=== PATIENT | male | born 1975 | race African-American/Black ===

== ENCOUNTER 2022-08-13 09:24 | Emergency (ER) | payer BC ==
[2022-08-13 10:00] LABS: #Monocytes 0.5 10x3/uL (0.0-1.1); #Neutrophils 10.6 10x3/uL (1.5-8.4); %Basophils 0.3 % (0.0-2.0); %Eosinophils 0.3 % (0.0-6.0); %Lymphocytes 11.1 % (18.0-47.0); %Monocytes 4.1 % (0.0-10.0); %Neutrophils 83.6 % (40.0-75.0); Hemoglobin 12.2 g/dL (13.5-17.5); Mean Corpuscular Hemoglobin 29.1 pg (27.0-33.0); Mean Corpuscular Volume 85.7 fl (81.2-95.1); Mean Platelet Volume 9.5 fl (7.4-10.4); Platelet Count 336 10x3/uL (150-450); RBC Distribution Width 11.7 % (11.5-14.5); Red Blood Cell (RBC) Count 4.19 10x6/uL (4.32-5.72); White Blood Cell (WBC) Count 12.7 10x3/uL (3.5-10.5)
[2022-08-13 10:03] LABS: ALT (SGPT) 11 U/L (8-55); AST (SGOT) 18 U/L (5-34); Albumin 4.4 g/dL (3.5-5.0); Alkaline Phosphatase 95 U/L (40-110); Anion Gap 13 mmol/L (10-20); BUN (Urea Nitrogen) 13 mg/dL (8.9-20.6); Bilirubin, Total 0.7 mg/dL (0.2-1.2); Calc. Creatinine Clearance 0 mL/min (70-130); Calcium 9.4 mg/dL (7.8-10.44); Carbon Dioxide 27 mmol/L (22-29); Chloride 102 mmol/L (98-107); Estimated GFR 84; Globulin 2.8 g/dL (2.4-3.5); Glucose 106 mg/dL (70-105); Lipase 8 U/L (8-78); Potassium 3.6 mmol/L (3.5-5.1); Protein, Total 7.2 g/dL (6.0-8.3); Sodium 138 mmol/L (136-145)
== END 2022-08-13 11:30 | disposition home or self-care (01) ==
LOC: CSHERS 09:24
DX: R07.9 Chest pain, unspecified (principal); F15.90 Other stimulant use, unspecified, uncomplicated; I10 Essential (primary) hypertension; F17.210 Nicotine dependence, cigarettes, uncomplicated
CPT/HCPCS: 71045; 80053; 83690; 83880; 84484; 85025; 93005; 94760

== ENCOUNTER 2023-09-06 18:55 | Emergency (ER) | payer BC, SELFPAY | END 2023-09-06 22:08 | disposition home or self-care (01) | LOC: CSHERS 18:55 | DX: K94.03 Colostomy malfunction (principal); I10 Essential (primary) hypertension; F17.210 Nicotine dependence, cigarettes, uncomplicated | CPT/HCPCS: 99283 ==

== ENCOUNTER 2023-09-07 07:28 | Inpatient (IN) | payer OTHER, SELFPAY ==
[2023-09-07 09:06] LABS: #Eosinphils 0.7 10x3/uL (0.0-0.5); #Monocytes 0.5 10x3/uL (0.0-1.1); %Basophils 0.3 % (0.0-2.0); %Eosinophils 6.6 % (0.0-6.0); %Lymphocytes 16.3 % (18.0-47.0); %Monocytes 4.7 % (0.0-10.0); %Neutrophils 71.5 % (40.0-75.0); Hematocrit 40.1 % (38.8-50.0); Hemoglobin 13.7 g/dL (13.5-17.5); Mean Corpuscular HGB CONC 34.2 g/dL (32.0-36.0); Mean Corpuscular Hemoglobin 29.5 pg (27.0-33.0); Mean Corpuscular Volume 86.4 fl (81.2-95.1); Mean Platelet Volume 9.5 fl (7.4-10.4); Platelet Count 438 10x3/uL (150-450); RBC Distribution Width 12.2 % (11.5-14.5); Red Blood Cell (RBC) Count 4.64 10x6/uL (4.32-5.72); White Blood Cell (WBC) Count 9.8 10x3/uL (3.5-10.5)
[2023-09-07] MEDS ORDERED: Lorazepam 2 MG/ML VIAL ONE (09:11)
[2023-09-07] MEDS ORDERED: Morphine 4 MG/ML VIAL ONE (09:12)
[2023-09-07] MEDS ORDERED: Lidocaine 1% (PF) 30 ML VIAL ONE (09:14)
[2023-09-07 09:16] LABS: PTT 31.4 sec (22.0-33.0); Prothrombin Time 10.8 sec (9.5-12.1)
[2023-09-07 09:22] LABS: ALT (SGPT) 8 U/L (8-55); AST (SGOT) 18 U/L (5-34); Albumin 4.4 g/dL (3.5-5.0); Alkaline Phosphatase 114 U/L (40-110); Anion Gap 15 mmol/L (10-20); BUN (Urea Nitrogen) 19 mg/dL (8.9-20.6); Bilirubin, Total 0.6 mg/dL (0.2-1.2); Calc. Creatinine Clearance 0 mL/min (70-130); Calcium 9.9 mg/dL (7.8-10.44); Carbon Dioxide 24 mmol/L (22-29); Chloride 107 mmol/L (98-107); Estimated GFR 74; Glucose 88 mg/dL (70-105); Potassium 4.4 mmol/L (3.5-5.1); Protein, Total 7.4 g/dL (6.0-8.3); Sodium 142 mmol/L (136-145)
[2023-09-07 09:28] LABS: Troponin I Less than 0.010 ng/mL (< 0.028)
[2023-09-07] MEDS ORDERED: Ketamine In 0.9 % NaCl 50 MG/5 ML SYRINGE SLOW IVP SCH (10:00)
[2023-09-07 11:52] VITALS: BMI 27.8
[2023-09-07] MEDS ORDERED: FLU VACC QS2023-24(6MOS UP)/PF 60 MCG/0.5 ML SYRINGE IM ONE (12:00)
[2023-09-07] MEDS ORDERED: Calcium Carbonate 500 MG ChewTAB PO PRN (15:06)
[2023-09-07] MEDS ORDERED: Ondansetron ODT 4 MG TAB PO PRN (15:06)
[2023-09-07] MEDS ORDERED: Artificial Tear Sol 15 ML BOT EA EYE PRN (15:06)
[2023-09-07] MEDS ORDERED: Ondansetron PF 4 MG/2 ML Vial IVP PRN (15:06)
[2023-09-07] MEDS ORDERED: Moisturizing Cream (Eucerin) 113 GM JAR TOP PRN (15:06)
[2023-09-07] MEDS ORDERED: Benzocaine/Menthol 1 LOZ LOZ PO PRN (15:06)
[2023-09-07] MEDS ORDERED: Acetaminophen 650 MG Suppository PR PRN (15:06)
[2023-09-07] MEDS ORDERED: Bisacodyl 5 MG TAB PO PRN (15:06)
[2023-09-07] MEDS ORDERED: Senokot S 8.6-50 MG TAB PO PRN (15:06)
[2023-09-07] MEDS ORDERED: diphenhydrAMINE 25 MG CAP PO PRN (15:06)
[2023-09-07] MEDS: Acetaminophen 325 MG TAB PO PRN ×2 (16:00→21:16)
[2023-09-07] MEDS: Nicotine 14 MG PATCH TD SCH (16:01)
[2023-09-07] MEDS ORDERED: Labetalol HCl 100 MG/20 ML VIAL SLOW IVP PRN (16:56)
[2023-09-07] MEDS ORDERED: Amlodipine 10 MG TAB PO SCH (17:15)
[2023-09-07] MEDS ORDERED: hydrALAZINE 25 MG TAB PO SCH ×2 (17:30→21:00)
[2023-09-07 22:08] LABS: Amphetamine Detected (NotDetected); Barbiturates Screen Not Detected (NotDetected); Benzodiazepine Screen Detected (NotDetected); Cocaine Metabolite Screen Not Detected (NotDetected); Methadone Not Detected (NotDetected); Methamphetamine Detected (NotDetected); Opiate Screen Detected (NotDetected); Oxycodone Screen Not Detected (NotDetected); Phencyclidine (PCP) Not Detected (NotDetected); THC/Cannabinoid Screen Detected (NotDetected); Tricyclic Screen Not Detected (NotDetected)
[2023-09-07 22:32] LABS: SARS-CoV-2 NAA Rapid Test Not Detected (NotDetected)
[2023-09-08] MEDS: hydrALAZINE 20 MG/ML VIAL SLOW IVP PRN ×2 (00:51→05:29)
[2023-09-08] MEDS ORDERED: Morphine 4 MG/ML VIAL SLOW IVP SCH (03:30)
[2023-09-08] MEDS ORDERED: Lorazepam 1 MG TAB PO SCH (09:00)
[2023-09-08] MEDS: Amlodipine 10 MG TAB PO SCH (09:23)
[2023-09-08] MEDS: Acetaminophen 325 MG TAB PO PRN (09:23)
[2023-09-08] MEDS: Losartan Potassium 50 MG TAB PO SCH (10:20)
[2023-09-08] MEDS ORDERED: Lorazepam 2 MG/ML VIAL SLOW IVP PRN (11:12)
[2023-09-08] MEDS ORDERED: HYDROcodone/Acetaminophen 5/325 mg Tablet PO PRN (11:12)
[2023-09-08] MEDS: Nicotine 14 MG PATCH TD SCH (16:45)
[2023-09-09 04:21] LABS: Anion Gap 13 mmol/L (10-20); BUN (Urea Nitrogen) 17 mg/dL (8.9-20.6); Calc. Creatinine Clearance 113 mL/min (70-130); Carbon Dioxide 23 mmol/L (22-29); Chloride 105 mmol/L (98-107); Estimated GFR 89; Glucose 96 mg/dL (70-105); Potassium 3.7 mmol/L (3.5-5.1); Sodium 137 mmol/L (136-145)
[2023-09-09 04:27] LABS: #Basophils 0.1 10x3/uL (0.0-0.2); #Eosinphils 0.6 10x3/uL (0.0-0.5); #Monocytes 0.8 10x3/uL (0.0-1.1); #Neutrophils 7.9 10x3/uL (1.5-8.4); %Basophils 0.6 % (0.0-2.0); %Eosinophils 5.5 % (0.0-6.0); %Lymphocytes 16.2 % (18.0-47.0); %Neutrophils 69.9 % (40.0-75.0); Hematocrit 39.1 % (38.8-50.0); Mean Corpuscular HGB CONC 33.2 g/dL (32.0-36.0); Mean Corpuscular Hemoglobin 28.6 pg (27.0-33.0); Mean Corpuscular Volume 86.1 fl (81.2-95.1); Mean Platelet Volume 9.9 fl (7.4-10.4); Platelet Count 419 10x3/uL (150-450); RBC Distribution Width 12.3 % (11.5-14.5); Red Blood Cell (RBC) Count 4.54 10x6/uL (4.32-5.72); White Blood Cell (WBC) Count 11.3 10x3/uL (3.5-10.5)
[2023-09-09] MEDS: Amlodipine 10 MG TAB PO SCH (08:45)
[2023-09-09] MEDS: Losartan Potassium 50 MG TAB PO SCH (08:45)
[2023-09-09] MEDS: Nicotine 14 MG PATCH TD SCH (16:55)
[2023-09-09 16:57] VITALS: BP 159/95; TEMP 98.2
== END 2023-09-09 18:39 | disposition home or self-care (01) | DRG 200 ==
LOC: CSHERS 07:28 → CSHTELE 11:11
PROVIDERS: ADMIT Surgery; ATTEND Internal Medicine
PROC: 0W9B30Z Drainage of Left Pleural Cavity with Drainage Device, Percutaneous Approach (ICD-10-PCS; principal; 2023-09-07)
DX: J93.83 Other pneumothorax (principal); F11.23 Opioid dependence with withdrawal; F15.23 Other stimulant dependence with withdrawal; I10 Essential (primary) hypertension; Z98.890 Other specified postprocedural states; Z90.49 Acquired absence of other specified parts of digestive tract; F12.10 Cannabis abuse, uncomplicated; R00.0 Tachycardia, unspecified; Z20.822 Contact with and (suspected) exposure to COVID-19; Z79.899 Other long term (current) drug therapy
CPT/HCPCS: 36415; 71045; 80048; 80053; 80306; 80307; 83735; 83880; 84484; 85025; 85610; 85730; 96374; 96375; J0360; J2001; J2060; J2270; J3490